=== PATIENT | male | born 1945 | race Caucasian/White ===

== ENCOUNTER 2016-12-26 11:52 | Inpatient (IN) | payer MEDICARE, OTHER ==
[2016-12-16 13:31] LABS: WBC (NOT ORDERED) (RFLEX) 0 (0-5)
[2016-12-16 14:24] LABS: BASOPHILS 0.1 %; BASOPHILS ABSOLUTE 0.01 10/3/uL (0.0-0.16); EOSINOPHILS 2.1 %; EOSINOPHILS ABSOLUTE 0.14 10/3/uL (0.0-0.53); HEMOGLOBIN 13.6 g/dL (13.6-17.8); IMMATURE GRANULOCYTES 0.1 %; IMMATURE GRANULOCYTES ABSOLUTE 0.01 10/3/uL (0.0-0.11); LYMPHOCYTES ABSOLUTE 1.94 10/3/uL (0.67-4.30); MEAN CORPUS HGB CONC 34.9 g/dL (32.0-36.0); MEAN CORPUSCULAR HEMOGLOB 31.2 pg (26.0-34.0); MEAN CORPUSCULAR VOLUME 89.4 fL (80-100); MEAN PLATELET VOLUME 9.4 fL (9.2-13.0); MONOCYTES 10.5 %; NEUTROPHILS 58.2 %; NEUTROPHILS ABSOLUTE 3.89 10/3/uL (2.02-8.40); RBC DISTRIBUTION WIDTH 15.2 % (12.0-16.0); RED CELL COUNT 4.36 10/6/uL (4.7-6.1); WHITE BLOOD CELLS 6.7 10/3/uL (4.5-10.5)
[2016-12-16 14:26] LABS: MANUAL DIFF NO %; PLATELET COUNT 185 10/3/uL (150-400)
[2016-12-16 14:32] LABS: INTERNATIONAL NORMAL RATI 1.1 UNITS (-); PARTIAL THROMBO TIME 25.2 SEC (22.5-37.2); PROTIME (NOT ORD) 13.9 SEC (12.0-14.5)
[2016-12-16 14:48] LABS: A/G RATIO 1.2 (0.7-1.9); ALBUMIN 3.6 G/DL (3.5-5.0); ALKALINE PHOSPHATASE 47 U/L (45-117); BUN (BLOOD UREA NITROGEN) 19 MG/DL (6-23); CHLORIDE, SERUM 109 MMOL/L (96-112); CO2 (CARBON DIOXIDE) 25 MMOL/L (24-34); CREATININE 0.96 MG/DL (0.70-1.30); GFR AFRICAN AMERICAN 91 ML/MIN (>=60); GFR NON AFRICAN AMERICAN 78 ML/MIN (>=60); GLUCOSE, SERUM 101 MG/DL (60-99); SGOT(AST) 22 U/L (5-40); SGPT(ALT) 31 U/L (5-65); SODIUM, SERUM 143 MMOL/L (135-148); TOTAL BILIRUBIN 0.5 MG/DL (0-1.2); TOTAL PROTEIN 6.6 G/DL (6.0-8.5)
[2016-12-16 17:39] LABS: ASCORBIC ACID (UR NOT ORDER) 20 (NEG); BILIRUBIN, URINE NEGATIVE (NEG); KETONE, URINE NEGATIVE (NEG); LEUKOCYTE ESTERASE(NOT OR NEG (NEG)
--- NOTE | ~2016-12-26 | OP ---
Record Of Operation [facility] [address] [place] [address] NAME: MARVIN BUCIO : 41 STATUS : ADM IN PAT#: [id number] AGE: 71 ADM/REG DATE : 12/26/16 MR#: [id number] REPORT SERV DATE: 12/26/16 DICTATED BY: ERIKA PHAM DATE: 12/26/16 REPORT STATUS : Draft TRANSCRIBED BY: MODL DATE: 12/26/16 DATE OF PROCEDURE: 12/26/2016 PREOPERATIVE DIAGNOSIS: Right knee arthritis with multiple loose bodies. POSTOPERATIVE DIAGNOSIS: Right knee arthritis with multiple loose bodies. PROCEDURE PERFORMED: Right total knee arthroplasty with multiple loose body removal. SURGEON: Erika Pham M.D. PRODUCT SUPPORT SPECIALIST: Chandrakant Babb. ANESTHESIA: General with adductor block and local infusion. PROCEDURE IN DETAIL: The patient is clearly identified and after obtaining informed consent is brought to the operating room at [facility] where anesthesia is induced uneventfully with excellent anesthetic effect. Subsequently, the affected extremity is prepped and draped in the usual manner and after an appropriate time-out procedure is performed, via an anterior approach, the skin is divided, fascial planes are elevated, paramedial approach to the knee is made. The structures themselves are elevated, excised, and debrided were appropriate, whereupon the patella is carefully everted, calipered, and planed and with the size and type being reproduced with the appropriate-size patella, trialing is performed successfully. At this point, the patella is then carefully subluxed laterally, the knee is flexed, osteophytes around the distal femur are removed, followed by the ACL being divided. The femoral canal is entered and vented, at which point with the intramedullary guide being utilized, the distal femoral cut is made. At this point, the tibia is carefully subluxed anteriorly. The surrounding soft tissues to the tibia are protected with Hohmann retractors, at which point the extramedullary guide is utilized to perform the proximal tibial cut and after cleansing these tissues, the spacer block is utilized in extension to confirm excellent extension, stability, and alignment. The guiding pins are then all carefully removed and the knee is then flexed. The femur is sized, whereupon the anterior, posterior, chamfer, and box cuts are made appropriately. The proximal tibia then is assessed. Osteophytes and surrounding soft tissues are removed and debrided were appropriate. Posterior osteophytes are removed as well. The menisci are excised and thus concluding trialings performed successfully. The proximal tibia then is carefully prepared utilizing proper cement technique. The permanent implants have been carefully placed into position uneventfully where upon copious irrigations performed, the permanent tibial implants applied and thus concluded. The joint was then copiously irrigated, at which point it is closed carefully in layers including Vicryl and keisha for the skin, at which point Aquacel sterile dressing is applied. The patient is allowed to awaken and is transferred to the bed and subsequently to the recovery room in stable condition having tolerated the procedure well. ESTIMATED BLOOD LOSS: 50 mL. Record Of Operation [address] [address] NAME: MARVIN BUCIO : 41 STATUS : ADM IN [facility]#: [id number] AGE: 71 ADM/REG DATE : 12/26/16 MR#: [id number] REPORT SERV DATE: 12/26/16 DICTATED BY: ERIKA PHAM DATE: 12/26/16 REPORT STATUS : Draft TRANSCRIBED BY: GONZALO DATE: 12/26/16 FLUIDS: 1000 mL. TOURNIQUET TIME: 49 minutes. PATHOLOGY: Sent specimen. MICROBIOLOGY: None. COMPLICATIONS: None. SPONGE AND NEEDLE COUNTS: Reportedly correct. ANTIBIOTICS: Administered appropriately preoperatively and ordered to be discontinued within 23 hours. IMPLANTS: DePuy knee system, Attune, femur 8, tibia 9, patella 41, polyethylene 8/6. MEREDITH/GONZALO Erika Pham M.D. / [id number] CC: Rachel Barraza TYE
[~2016-12-26 11:52] MED LIST: AMB5 PO; ASA5GR PO; ASAB PO; ASMANEX100 INH; CARDU2 PO; COZAAR100 MG PO; CRESTOR10 PO; FISH OIL1200 MG PO; FISH-EPA1000 MG PO; HYCODAN5 MG PO; HYDROCORT12 EX; KRILLOIL; MULTIPLE VIT PO; NEUR100 PO; NITROII20C TOP; NORCO1 TA1 PO; PLAVIX PO; SLO-NIACIN500 MG PO; SPIRO25 PO; TESSALON200 MG PO; TOPXL25 PO; VITAMIN D2000 UNIT PO; VITAMIN D31000 UNIT PO; VITC500 PO; Z-PAK PO; Z300 PO
[2016-12-27 06:42] LABS: INTERNATIONAL NORMAL RATI 1.2 UNITS (-); PROTIME (NOT ORD) 14.9 SEC (12.0-14.5)
[2016-12-27 06:47] LABS: HEMATOCRIT 32.2 % (40.0-51.0); HEMOGLOBIN 10.8 g/dL (13.6-17.8)
[2016-12-27 06:52] LABS: BUN (BLOOD UREA NITROGEN) 18 MG/DL (6-23); CALCIUM, SERUM 8.2 MG/DL (8.5-10.4); CHLORIDE, SERUM 108 MMOL/L (96-112); CO2 (CARBON DIOXIDE) 25 MMOL/L (24-34); CREATININE 1.13 MG/DL (0.70-1.30); GFR AFRICAN AMERICAN 74 ML/MIN (>=60); GFR NON AFRICAN AMERICAN 64 ML/MIN (>=60); GLUCOSE, SERUM 129 MG/DL (60-99); POTASSIUM, SERUM 3.7 MMOL/L (3.5-5.3); SODIUM, SERUM 143 MMOL/L (135-148)
[2016-12-28 05:30] LABS: HEMOGLOBIN 10.9 g/dL (13.6-17.8)
[2016-12-28 05:37] LABS: INTERNATIONAL NORMAL RATI 1.5 UNITS (-)
[2016-12-28 05:40] LABS: PROTIME (NOT ORD) 17.6 SEC (12.0-14.5)
[2016-12-28] MEDS ORDERED: DSS PO (15:03)
[2016-12-28] MEDS ORDERED: C5 PO (15:04)
[2016-12-28] MEDS ORDERED: FERROUS SULF325 M1 PO (15:04)
[2016-12-28] MEDS ORDERED: NORCO1 TA2 PO (15:07)
== END 2016-12-28 17:15 | disposition home or self-care (01) | DRG 470 ==
LOC: SDC/OF 11:52 → 1SO 20:18
PROVIDERS: Orthopaedic Surgery
PROC: 0QC Lower Bones, Extirpation (ICD-10-PCS; 2016-12-26)
PROC: 3E0T3CZ (ICD-10-PCS; 2016-12-26)
PROC: 0SRC0J9 Replacement of Right Knee Joint with Synthetic Substitute, Cemented, Open Approach (ICD-10-PCS; principal; 2016-12-26 14:00)
DX: M17.0 Bilateral primary osteoarthritis of knee (principal); I10 Essential (primary) hypertension; M23.41 Loose body in knee, right knee; E66.9 Obesity, unspecified; I25.10 Atherosclerotic heart disease of native coronary artery without angina pectoris; E78.5 Hyperlipidemia, unspecified; N40.0 Benign prostatic hyperplasia without lower urinary tract symptoms; Z68.33 Body mass index [BMI] 33.0-33.9, adult; Z79.02 Long term (current) use of antithrombotics/antiplatelets; Z79.01 Long term (current) use of anticoagulants; Z79.891 Long term (current) use of opiate analgesic; Z79.899 Other long term (current) drug therapy; I25.2 Old myocardial infarction; Z98.61 Coronary angioplasty status; Z95.1 Presence of aortocoronary bypass graft
CPT/HCPCS: 36415; 71020; 80048; 80053; 81001; 85014; 85018; 85025; 85610; 85730; 86850; 86900; 86901; 87641; 88305; 88311; 93005; 97110-GP; 97116-GP; 97162-GP; 97165-GO; A9270-GY; C1776; G8987-CJ-GO; G8988-CJ-GO; G8989-CJ-GO; J0690; J1885; J2250; J2274; J2370; J2405; J2710; J2795; J3010